=== PATIENT | male | born 1950 | race Caucasian/White ===

== ENCOUNTER 2019-02-26 08:37 | Day surgery (SDC) | payer MEDICARE ==
[~2019-02-26] VITALS: Ht 172.7 cm; Wt 81.9 kg
[~2019-02-26 08:37] MED LIST: LIDOcaine 1% 30ml preserv. free vial SQ STA
[2019-02-26] MEDS ORDERED: OMEP20TA23 PO (09:05)
[2019-02-26 09:36] VITALS: BP 143/83
[2019-02-26 09:55] VITALS: BP 143/83
[2019-02-26 10:00] VITALS: BP 143/83
[2019-02-26 10:20] VITALS: BP 147/89
== END 2019-02-26 10:30 | disposition home or self-care (01) ==
LOC: SSTAY O 08:37
PROVIDERS: ATTEND Radiology Diagnostic Radiology
DX: R59.0 Localized enlarged lymph nodes (principal); C34.90 Malignant neoplasm of unspecified part of unspecified bronchus or lung; C77.0 Secondary and unspecified malignant neoplasm of lymph nodes of head, face and neck
CPT/HCPCS: 38505; 76942; J2001